=== PATIENT | male | born 1950 | race Caucasian/White ===

== ENCOUNTER 2017-05-12 06:10 | Day surgery (SDC) | payer OTHER ==
[~2017-05-12 06:10] MED LIST: NOVOLIN N100 UNIT/1 IM; SYNTHROID50 MCG PO; [UNRECOGNIZED DRUG - OTHER] PO
[2017-05-12] MEDS ORDERED: DUI500 PO (11:25)
[2017-05-12] MEDS ORDERED: TRAM1TAB98 PO (11:25)
== END 2017-05-12 15:40 | disposition home or self-care (01) ==
LOC: CIR.AMB 06:10
DX: M23.322 Other meniscus derangements, posterior horn of medial meniscus, left knee (principal); M23.352 Other meniscus derangements, posterior horn of lateral meniscus, left knee; M17.12 Unilateral primary osteoarthritis, left knee